=== PATIENT | male | born 1955 | race Caucasian/White ===

== ENCOUNTER → 2016-05-07 | Outpatient (CLI) | payer BC, OTHER ==
[~2016-05-07] VITALS: Ht 180.3 cm; Wt 92.5 kg
[~2016-05-07] MED LIST: ACTO30TA7 PO; AMLO10TA2 PO; ENBR50IN2 SC; FOLI400T PO; GEMF600T PO; GLIP10TA58 PO; HYZA100T6 PO; LEXA1TAB2 PO; LIDOCAINE 2% INJ 100 MG/5 ML SDV (FOR ANES.) As Ordered ONE; LIPI20TA PO; METF850T PO; METH25VL2 IM; METO25TAB PO; NS 1,000 ML IV SCH; OMEP20CA3 PO; PRED1TABL PO; PROPOFOL 200 MG/20 ML VIAL As Ordered ONE; VESI5TAB PO; VICT18IN SC
--- NOTE | 2016-05-07 11:10 | ROOR ---
Patient Name: Deni Brannon Procedure Date: 05/07/2016 10:50 AM Date of : 1955 Age: 61 Room: [facility] Gender: Male Note Status: Finalized Procedure: Colonoscopy Indications: High risk colon cancer surveillance: Personal history of colonic polyps, Last colonoscopy: January 2013 Providers: Deni RICHARDSON MD Referring MD: ISABELLA COLLINS MD Requesting Provider: Medicines: Monitored Anesthesia Care Complications: No immediate complications. Procedure: Pre-Anesthesia Assessment: - The heart rate, respiratory rate, oxygen saturations, blood pressure, adequacy of pulmonary ventilation, and response to care were monitored throughout the procedure. The Colonoscope was introduced through the anus and advanced to the cecum, identified by appendiceal orifice and ileocecal valve. The colonoscopy was performed without difficulty. The patient tolerated the procedure well. The quality of the bowel preparation was adequate. Findings: The perianal and digital rectal examinations were normal. (EXAM: Complete, PREP: Fair/Adequate) A 4 mm polyp was found in the sigmoid colon. The polyp was sessile. The polyp was removed with a cold snare. Resection and retrieval were complete. Multiple medium-mouthed diverticula were found in the sigmoid colon. The exam was otherwise without abnormality on direct and retroflexion views. Impression: - (EXAM: Complete, PREP: Fair/Adequate) - One 4 mm polyp in the sigmoid colon, removed with a cold snare. Resected and retrieved. - Moderate diverticulosis in the sigmoid colon. Internal hemorrhoids - The examination was otherwise normal on direct and retroflexion views. Recommendation: - Repeat colonoscopy in 5 years for surveillance. - Telephone endoscopist for pathology results in 2 weeks. Deni Richardson MD Deni RICHARDSON MD 05/07/2016 11:10:02 AM This report has been signed electronically. Number of Addenda: 0 Note Initiated On: 05/07/2016 10:50 AM Estimated Blood Loss: Estimated blood loss: none.
[2016-05-07 11:35] VITALS: BP 147/84
== END ==
LOC: M OPP 08:18
PROVIDERS: ATTEND Internal Medicine Gastroenterology
DX: Z12.11 Encounter for screening for malignant neoplasm of colon (principal); Z86.010 Personal history of colon polyps; Z80.0 Family history of malignant neoplasm of digestive organs; D12.5 Benign neoplasm of sigmoid colon; K57.30 Diverticulosis of large intestine without perforation or abscess without bleeding; E11.9 Type 2 diabetes mellitus without complications; E78.00 Pure hypercholesterolemia, unspecified; K21.9 Gastro-esophageal reflux disease without esophagitis; M06.9 Rheumatoid arthritis, unspecified; Z79.899 Other long term (current) drug therapy

== ENCOUNTER 2017-10-06 13:05 | Inpatient (IN) | payer BC, OTHER ==
[2017-10-06 14:25] LABS: BASO % 0.2 % (0.0-1.0); HEMATOCRIT 38.4 % (42.0-52.0); HEMOGLOBIN 13.9 g/dl (13.5-17.5); IMMATURE GRANULOCYTE % 2.4 % (0-3.0); LYMPH # 0.4 10^3/uL (1.5-4.5); LYMPH % 3.8 % (24.0-44.0); MEAN CORPUSCULAR HEMOGLOBIN 29.9 pg (27.0-33.0); MEAN CORPUSCULAR HGB CONC 36.2 g/dl (32.0-36.5); MEAN CORPUSCULAR VOLUME 82.6 fl (80.0-96.0); MONO # 0.4 10^3/uL (0.0-0.8); MONO % 3.5 % (0.0-5.0); NEUTROPHILS # 10.2 10^3/uL (1.8-7.7); NEUTROPHILS % 90.1 % (36.0-66.0); PLATELET COUNT, AUTOMATED 203 10^3/uL (150-450); RED BLOOD COUNT 4.65 10^6/uL (4.30-6.10); RED CELL DISTRIBUTION WIDTH 12.8 % (11.5-14.5); WHITE BLOOD COUNT 11.3 10^3/uL (4.0-10.0)
[2017-10-06 14:31] LABS: VENOUS BASE EXCESS 1.6 (-2.0-2.0); VENOUS HCO3 24.5 MEQ/L (23.0-27.0); VENOUS PARTIAL PRESSURE CO2 33.5 mmHg (38.0-50.0); VENOUS PARTIAL PRESSURE O2 41.8 mmHg (30.0-50.0); VENOUS PH 7.482 UNITS (7.330-7.430); VENOUS STANDARD HCO3 25.5 MEQ/L; VENOUS TOTAL CO2 25.5 MEQ/L (24.0-28.0)
[2017-10-06] MEDS: NS 1,000 ML IV ×4 (14:50→23:02)
[2017-10-06] MEDS: METOCLOPRAMIDE INJ 10MG/2ML VIAL (J2765) IV (14:50)
[2017-10-06 14:54] LABS: LACTIC ACID SEPSIS PROTOCOL 1.5 MMOL/L (0.4-2.0)
[2017-10-06 14:57] LABS: ALBUMIN 3.5 GM/DL (3.2-5.2); ALBUMIN/GLOBULIN RATIO 1.03 (1.00-1.93); ALKALINE PHOSPHATASE 212 U/L (45-117); ALT/SGPT 61 U/L (12-78); ANION GAP 10 MEQ/L (8-16); AST/SGOT 56 U/L (7-37); BILIRUBIN,TOTAL 0.9 MG/DL (0.2-1.0); BLOOD UREA NITROGEN 11 MG/DL (7-18); CARBON DIOXIDE LEVEL 25 MEQ/L (21-32); CHLORIDE LEVEL 93 MEQ/L (98-107); CPK CREATINE PHOSPHOKINASE 469 U/L (39-308); CREATININE FOR GFR 0.92 MG/DL (0.70-1.30); GLOMERULAR FILTRATION RATE > 60.0 (>49); GLUCOSE, FASTING 219 MG/DL (70-100); LIPASE 195 U/L (73-393); POTASSIUM SERUM 3.7 MEQ/L (3.5-5.1); SODIUM LEVEL 128 MEQ/L (136-145); TOTAL PROTEIN 6.9 GM/DL (6.4-8.2); TROPONIN I 0.07 NG/ML (< 0.10)
[2017-10-06 14:58] LABS: CK-MB VALUE MASS 1.5 NG/ML (<3.6); MB/CK RELATIVE INDEX 0.31 (< OR =4)
[2017-10-06 16:16] LABS: AMORPHOUS SEDIMENT RFX SMALL (NEGATIVE); KETONE, URINE AUTO RFX 1+ mg/dL (NEGATIVE); LEUKOCYTE ESTERASE UR AUTO RFX NEGATIVE (NEGATIVE); NITRITE, URINE AUTO RFX NEGATIVE (NEGATIVE); RBC, URINE AUTO RFX 1 /HPF (0-3); SPECIFIC GRAVITY UR AUTO RFX 1.025 (1.002-1.035); SQUAM EPITHELIAL CELL UR AURFX 0 /HPF (0-6); WBC, URINE AUTO RFX 1 /HPF (0-3)
[2017-10-06] MEDS: ONDANSETRON 4MG/2ML VIAL (J2405) IV (16:28)
[2017-10-06] MEDS: FAMOTIDINE IV BAG 20 MG in APPROPRIATE DILUENT 1 EA IV (17:01)
[2017-10-06] MEDS: ACETAMINOPHEN 325 MG TAB PO (17:01)
[2017-10-06] MEDS: methylPREDNISolone INJ 125 MG/2 ML VIAL (J2930) IV (17:01)
[2017-10-06 19:55] LABS: CK-MB VALUE MASS 1.1 NG/ML (<3.6); CPK CREATINE PHOSPHOKINASE 401 U/L (39-308); MB/CK RELATIVE INDEX 0.27 (< OR =4); TROPONIN I 0.08 NG/ML (< 0.10)
[2017-10-07] MEDS ORDERED: ONDANSETRON 4MG/2ML VIAL (J2405) IV (01:45)
[2017-10-07] MEDS: cefTRIAXone SOD 1 GM in D5W MINI-BAG PLUS 50 ML IV (02:47)
[2017-10-07] MEDS: diphenhydrAMINE 50 MG CAP PO (02:47)
[2017-10-07] MEDS: NS 1,000 ML IV ×2 (02:47→14:00)
[2017-10-07 03:41] LABS: BEDSIDE GLUCOSE 224 MG/DL (80-115)
[2017-10-07 07:18] LABS: BASO % 0.2 % (0.0-1.0); HEMATOCRIT 38.4 % (42.0-52.0); HEMOGLOBIN 13.4 g/dl (13.5-17.5); IMMATURE GRANULOCYTE % 1.4 % (0-3.0); LYMPH # 0.5 10^3/uL (1.5-4.5); LYMPH % 5.5 % (24.0-44.0); MEAN CORPUSCULAR HEMOGLOBIN 29.8 pg (27.0-33.0); MEAN CORPUSCULAR HGB CONC 34.9 g/dl (32.0-36.5); MEAN CORPUSCULAR VOLUME 85.3 fl (80.0-96.0); MONO # 0.4 10^3/uL (0.0-0.8); MONO % 4.1 % (0.0-5.0); NEUTROPHILS # 8.6 10^3/uL (1.8-7.7); NEUTROPHILS % 88.8 % (36.0-66.0); PLATELET COUNT, AUTOMATED 215 10^3/uL (150-450); RED CELL DISTRIBUTION WIDTH 12.9 % (11.5-14.5); WHITE BLOOD COUNT 9.7 10^3/uL (4.0-10.0)
[2017-10-07 07:52] LABS: ALBUMIN 2.8 GM/DL (3.2-5.2); ALBUMIN/GLOBULIN RATIO 0.67 (1.00-1.93); ALKALINE PHOSPHATASE 169 U/L (45-117); ALT/SGPT 51 U/L (12-78); ANION GAP 10 MEQ/L (8-16); AST/SGOT 36 U/L (7-37); BILIRUBIN,TOTAL 0.4 MG/DL (0.2-1.0); BLOOD UREA NITROGEN 17 MG/DL (7-18); CALCIUM LEVEL 7.9 MG/DL (8.8-10.2); CARBON DIOXIDE LEVEL 25 MEQ/L (21-32); CHLORIDE LEVEL 106 MEQ/L (98-107); CK-MB VALUE MASS 1.7 NG/ML (<3.6); CPK CREATINE PHOSPHOKINASE 242 U/L (39-308); CREATININE FOR GFR 0.85 MG/DL (0.70-1.30); GLOMERULAR FILTRATION RATE > 60.0 (>49); GLUCOSE, FASTING 217 MG/DL (70-100); POTASSIUM SERUM 3.3 MEQ/L (3.5-5.1); SODIUM LEVEL 141 MEQ/L (136-145); TROPONIN I 0.06 NG/ML (< 0.10)
[2017-10-07] MEDS: FAMOTIDINE/NS 20 MG/50 ML BAG (S0028) IV (07:57)
[2017-10-07] MEDS: amLODIPine 10 MG TAB PO (07:58)
[2017-10-07] MEDS: OMEPRAZOLE 20 MG CAP PO (07:58)
[2017-10-07] MEDS: METOPROLOL SUCC *XL* 25MG TAB (TopROL *XL*) PO ×2 (07:58→08:20)
[2017-10-07] MEDS: ESCITALOPRAM OXALATE 10 MG TAB (LEXAPRO) PO (07:58)
[2017-10-07] MEDS: ACETAMINOPHEN TAB 650MG DOSE (2X325MG) PO ×2 (08:05→22:41)
[2017-10-07] MEDS: metFORMIN 850 MG TAB PO ×2 (10:25→17:25)
[2017-10-07 12:06] LABS: BEDSIDE GLUCOSE 248 MG/DL (80-115)
[2017-10-07] MEDS ORDERED: DEXTROSE 50% 50 ML SYRINGE IV (13:00)
[2017-10-07] MEDS ORDERED: GLUCOSE 4 GM CHEW TABLET PO (13:00)
[2017-10-07] MEDS ORDERED: GLUCAGON FOR INJ 1 MG VIAL (J1610) SC (13:00)
[2017-10-07] MEDS: VANCOMYCIN HCL 1,000 MG, VIAL MATE ADAPTER 1 EACH in D5W 250 ML IV (14:40)
[2017-10-07 16:40] LABS: BEDSIDE GLUCOSE 237 MG/DL (80-115)
[2017-10-07] MEDS: HumaLOG INSULIN (NovoLOG) PER UNIT SC ×2 (17:26→20:48)
[2017-10-07] MEDS: FAMOTIDINE IV BAG 20 MG in APPROPRIATE DILUENT 1 EA IV (20:15)
[2017-10-07 20:49] LABS: BEDSIDE GLUCOSE 167 MG/DL (80-115)
[2017-10-07] MEDS: cefTRIAXone SOD 2 GM in D5W MINI-BAG PLUS 50 ML IV (22:41)
[2017-10-08] MEDS: NS 1,000 ML IV ×3 (03:09→22:01)
[2017-10-08 06:13] LABS: BASO % 0.4 % (0.0-1.0); EOS # 0.1 10^3/uL (0.0-0.50); EOS % 1.7 % (0.0-3.0); HEMATOCRIT 33.1 % (42.0-52.0); IMMATURE GRANULOCYTE % 0.9 % (0-3.0); LYMPH # 1.1 10^3/uL (1.5-4.5); LYMPH % 21.2 % (24.0-44.0); MEAN CORPUSCULAR HEMOGLOBIN 29.5 pg (27.0-33.0); MEAN CORPUSCULAR HGB CONC 34.4 g/dl (32.0-36.5); MEAN CORPUSCULAR VOLUME 85.5 fl (80.0-96.0); MONO # 0.7 10^3/uL (0.0-0.8); MONO % 12.2 % (0.0-5.0); NEUTROPHILS # 3.4 10^3/uL (1.8-7.7); NEUTROPHILS % 63.6 % (36.0-66.0); PLATELET COUNT, AUTOMATED 233 10^3/uL (150-450); RED BLOOD COUNT 3.87 10^6/uL (4.30-6.10); RED CELL DISTRIBUTION WIDTH 13.3 % (11.5-14.5); WHITE BLOOD COUNT 5.3 10^3/uL (4.0-10.0)
[2017-10-08 06:34] LABS: ALBUMIN 2.4 GM/DL (3.2-5.2); ALBUMIN/GLOBULIN RATIO 0.75 (1.00-1.93); ALKALINE PHOSPHATASE 119 U/L (45-117); ALT/SGPT 42 U/L (12-78); ANION GAP 7 MEQ/L (8-16); AST/SGOT 30 U/L (7-37); BILIRUBIN,TOTAL 0.2 MG/DL (0.2-1.0); BLOOD UREA NITROGEN 16 MG/DL (7-18); CALCIUM LEVEL 7.5 MG/DL (8.8-10.2); CARBON DIOXIDE LEVEL 28 MEQ/L (21-32); CHLORIDE LEVEL 106 MEQ/L (98-107); CPK CREATINE PHOSPHOKINASE 108 U/L (39-308); CREATININE FOR GFR 0.74 MG/DL (0.70-1.30); GLOMERULAR FILTRATION RATE > 60.0 (>49); GLUCOSE, FASTING 158 MG/DL (70-100); POTASSIUM SERUM 3.4 MEQ/L (3.5-5.1); SODIUM LEVEL 141 MEQ/L (136-145); TOTAL PROTEIN 5.6 GM/DL (6.4-8.2)
[2017-10-08 06:42] LABS: HEMOGLOBIN 11.4 g/dl (13.5-17.5)
[2017-10-08 07:09] LABS: MAGNESIUM LEVEL 2.1 MG/DL (1.8-2.4)
[2017-10-08] MEDS: metFORMIN 850 MG TAB PO (08:07)
[2017-10-08] MEDS: OMEPRAZOLE 20 MG CAP PO (08:07)
[2017-10-08] MEDS: POTASSIUM CHLORIDE 10 MEQ SR TABLET PO (08:07)
[2017-10-08] MEDS: amLODIPine 10 MG TAB PO (08:07)
[2017-10-08] MEDS: ESCITALOPRAM OXALATE 10 MG TAB (LEXAPRO) PO (08:07)
[2017-10-08] MEDS: HumaLOG INSULIN (NovoLOG) PER UNIT SC ×4 (08:08→20:16)
[2017-10-08] MEDS: METOPROLOL SUCC *XL* 25MG TAB (TopROL *XL*) PO (08:09)
[2017-10-08] MEDS: ACETAMINOPHEN TAB 650MG DOSE (2X325MG) PO ×2 (08:09→17:21)
[2017-10-08 11:39] LABS: BEDSIDE GLUCOSE 101 MG/DL (80-115)
[2017-10-08 16:53] LABS: BEDSIDE GLUCOSE 168 MG/DL (80-115)
[2017-10-08 20:06] LABS: BEDSIDE GLUCOSE 149 MG/DL (80-115)
[2017-10-08] MEDS: cefTRIAXone SOD 2 GM in D5W MINI-BAG PLUS 50 ML IV (22:01)
[2017-10-09 00:06] LABS: IgG P18 AB Absent (.); IgG P23 AB Absent (.); IgG P28 AB Absent (.); IgG P30 AB Absent (.); IgG P39 AB Absent (.); IgG P41 AB Absent (.); IgG P45 AB Absent (.); IgG P58 AB Absent (.); IgG P66 AB Absent (.); IgG P93 AB Absent (.); IgM P23 AB Present (.); IgM P39 AB Absent (.); IgM P41 AB Present (.); LYME IgG WB INTERPRETATION Negative (.); LYME IgM WB INTERPRETATION Positive (.)
[2017-10-09] MEDS: NS 1,000 ML IV ×2 (03:50→13:36)
[2017-10-09 06:04] LABS: BASO % 0.6 % (0.0-1.0); EOS # 0.2 10^3/uL (0.0-0.50); EOS % 3.1 % (0.0-3.0); HEMATOCRIT 33.8 % (42.0-52.0); HEMOGLOBIN 11.7 g/dl (13.5-17.5); IMMATURE GRANULOCYTE % 1.6 % (0-3.0); LYMPH # 1.5 10^3/uL (1.5-4.5); LYMPH % 31.1 % (24.0-44.0); MEAN CORPUSCULAR HEMOGLOBIN 29.6 pg (27.0-33.0); MEAN CORPUSCULAR HGB CONC 34.6 g/dl (32.0-36.5); MEAN CORPUSCULAR VOLUME 85.6 fl (80.0-96.0); MONO # 0.7 10^3/uL (0.0-0.8); MONO % 13.3 % (0.0-5.0); NEUTROPHILS # 2.5 10^3/uL (1.8-7.7); NEUTROPHILS % 50.3 % (36.0-66.0); PLATELET COUNT, AUTOMATED 258 10^3/uL (150-450); RED BLOOD COUNT 3.95 10^6/uL (4.30-6.10); RED CELL DISTRIBUTION WIDTH 13.2 % (11.5-14.5); WHITE BLOOD COUNT 4.9 10^3/uL (4.0-10.0)
[2017-10-09 06:32] LABS: ALT/SGPT 40 U/L (12-78); ANION GAP 7 MEQ/L (8-16); AST/SGOT 30 U/L (7-37); BLOOD UREA NITROGEN 10 MG/DL (7-18); CALCIUM LEVEL 7.5 MG/DL (8.8-10.2); CARBON DIOXIDE LEVEL 31 MEQ/L (21-32); CHLORIDE LEVEL 105 MEQ/L (98-107); CPK CREATINE PHOSPHOKINASE 81 U/L (39-308); GLOMERULAR FILTRATION RATE > 60.0 (>49); GLUCOSE, FASTING 135 MG/DL (70-100); POTASSIUM SERUM 3.6 MEQ/L (3.5-5.1); SODIUM LEVEL 143 MEQ/L (136-145)
[2017-10-09 06:33] LABS: ALBUMIN 2.5 GM/DL (3.2-5.2); ALBUMIN/GLOBULIN RATIO 0.78 (1.00-1.93); ALKALINE PHOSPHATASE 113 U/L (45-117); BILIRUBIN,TOTAL 0.2 MG/DL (0.2-1.0); TOTAL PROTEIN 5.7 GM/DL (6.4-8.2)
[2017-10-09 06:58] LABS: POSITIVE MORPH POS FLAG
[2017-10-09] MEDS: HumaLOG INSULIN (NovoLOG) PER UNIT SC ×4 (09:19→21:00)
[2017-10-09] MEDS: ESCITALOPRAM OXALATE 10 MG TAB (LEXAPRO) PO (09:20)
[2017-10-09] MEDS: amLODIPine 10 MG TAB PO (09:20)
[2017-10-09] MEDS: METOPROLOL SUCC *XL* 25MG TAB (TopROL *XL*) PO (09:20)
[2017-10-09] MEDS: OMEPRAZOLE 20 MG CAP PO (09:20)
[2017-10-09 11:37] LABS: BEDSIDE GLUCOSE 159 MG/DL (80-115)
[2017-10-09 16:55] LABS: BEDSIDE GLUCOSE 166 MG/DL (80-115)
[2017-10-09 20:03] LABS: BEDSIDE GLUCOSE 198 MG/DL (80-115)
[2017-10-09] MEDS: cefTRIAXone SOD 2 GM in D5W MINI-BAG PLUS 50 ML IV (21:54)
[2017-10-10 00:06] LABS: Lyme Disease IgG Ab 18 kDa Ban Absent (.); Lyme Disease IgG Ab 23 kDa Ban Absent (.); Lyme Disease IgG Ab 28 kDa Ban Absent (.); Lyme Disease IgG Ab 30 kDa Ban Absent (.); Lyme Disease IgG Ab 39 kDa Ban Absent (.); Lyme Disease IgG Ab 41 kDa Ban Absent (.); Lyme Disease IgG Ab 45 kDa Ban Absent (.); Lyme Disease IgG Ab 58 kDa Ban Absent (.); Lyme Disease IgG Ab 66 kDa Ban Absent (.); Lyme Disease IgG Ab 93 kDa Ban Absent (.); Lyme Disease IgG West Blot Int Negative (.); Lyme Disease IgG/IgM Antibodie 0.92 ISR (0.00-0.90); Lyme Disease IgM Ab 23 kDa Ban Present (.); Lyme Disease IgM Ab 39 kDa Ban Absent (.); Lyme Disease IgM Ab 41 kDa Ban Present (.); Lyme Disease IgM Ab Quantitati 2.73 index (0.00-0.79); Lyme Disease IgM West Blot Int Positive (.)
[2017-10-10] MEDS: NS 1,000 ML IV ×2 (04:17→09:46)
[2017-10-10 06:07] LABS: HEMATOCRIT 35.1 % (42.0-52.0); HEMOGLOBIN 12.3 g/dl (13.5-17.5); MEAN CORPUSCULAR HEMOGLOBIN 29.6 pg (27.0-33.0); MEAN CORPUSCULAR VOLUME 84.6 fl (80.0-96.0); PLATELET COUNT, AUTOMATED 325 10^3/uL (150-450); RED BLOOD COUNT 4.15 10^6/uL (4.30-6.10); RED CELL DISTRIBUTION WIDTH 13.2 % (11.5-14.5); WHITE BLOOD COUNT 6.3 10^3/uL (4.0-10.0)
[2017-10-10 06:08] LABS: ADD MANUAL DIFFER YES; DIFF SLIDE NUMBER 24; POSITIVE MORPH POS FLAG
[2017-10-10 06:27] LABS: ALBUMIN 2.8 GM/DL (3.2-5.2); ALKALINE PHOSPHATASE 115 U/L (45-117); ALT/SGPT 40 U/L (12-78); ANION GAP 7 MEQ/L (8-16); AST/SGOT 32 U/L (7-37); BILIRUBIN,TOTAL 0.2 MG/DL (0.2-1.0); BLOOD UREA NITROGEN 8 MG/DL (7-18); CALCIUM LEVEL 8.1 MG/DL (8.8-10.2); CARBON DIOXIDE LEVEL 32 MEQ/L (21-32); CHLORIDE LEVEL 103 MEQ/L (98-107); CPK CREATINE PHOSPHOKINASE 58 U/L (39-308); CREATININE FOR GFR 0.67 MG/DL (0.70-1.30); GLOMERULAR FILTRATION RATE > 60.0 (>49); GLUCOSE, FASTING 176 MG/DL (70-100); POTASSIUM SERUM 3.6 MEQ/L (3.5-5.1); SODIUM LEVEL 142 MEQ/L (136-145); TOTAL PROTEIN 6.3 GM/DL (6.4-8.2)
[2017-10-10 06:39] LABS: ATYPICAL LYMPH 1 % (0-5); BASOPHILS 2 % (0-4); EOSINOPHILS 6 % (0-5); LYMPHOCYTES 24 % (16-52); MONOCYTES 7 % (0-8); NEUTROPHILS 60 % (35-75); PLATELET ESTIMATE NORMAL (NORMAL)
[2017-10-10 06:40] LABS: POLYCHROMASIA 1+
[2017-10-10] MEDS: OMEPRAZOLE 20 MG CAP PO (08:28)
[2017-10-10] MEDS: DOXYCYCLINE HYCLATE 100 MG TAB PO (08:28)
[2017-10-10] MEDS: HumaLOG INSULIN (NovoLOG) PER UNIT SC (08:29)
[2017-10-10] MEDS: ESCITALOPRAM OXALATE 10 MG TAB (LEXAPRO) PO (08:29)
[2017-10-10] MEDS: METOPROLOL SUCC *XL* 25MG TAB (TopROL *XL*) PO (08:29)
[2017-10-10] MEDS: amLODIPine 10 MG TAB PO (08:29)
== END 2017-10-10 12:12 | disposition home or self-care (01) | DRG 724 ==
LOC: M ED INP 10-07 01:36 → M ED 13:05 → M MS4PR 10-07 09:03 → M MSPAV 10-07 15:00
PROVIDERS: Internal Medicine
DX: A69.20 Lyme disease, unspecified (principal); D84.9 Immunodeficiency, unspecified; M06.9 Rheumatoid arthritis, unspecified; I10 Essential (primary) hypertension; E11.9 Type 2 diabetes mellitus without complications; E78.00 Pure hypercholesterolemia, unspecified; Z79.52 Long term (current) use of systemic steroids; Z79.84 Long term (current) use of oral hypoglycemic drugs; Z79.899 Other long term (current) drug therapy

== ENCOUNTER 2020-01-10 10:32 | Emergency (ER) | payer MEDICARE, BC, OTHER ==
[~2020-01-10 10:32] MED LIST changes: +ACTO30TA15 PO; -ACTO30TA7 PO; +ACTO45TA12 PO; -AMLO10TA2 PO; +AMLO1TAB25 PO; +ATOR80TA59 PO; +DOXY100T PO; -ENBR50IN2 SC; +ETAN50SY SC; -GEMF600T PO; +GEMF600T5 PO; -GLIP10TA58 PO; +GLIP1TAB11 PO; -LIDOCAINE 2% INJ 100 MG/5 ML SDV (FOR ANES.) As Ordered ONE; +LOSA100T8 PO; -METF850T PO; +METF850T4 PO; -METH25VL2 IM; +METH50IN8 IM; +METO1TAB32 PO; +METO25TA4 PO; -METO25TAB PO; -NS 1,000 ML IV SCH; +OMEP1CAP73 PO; -OMEP20CA3 PO; -PROPOFOL 200 MG/20 ML VIAL As Ordered ONE; -VESI5TAB PO; +VESI5TAB2 PO
[2020-01-10 11:19] LABS: BASO # 0.1 10^3/uL (0.0-0.2); BASO % 0.9 % (0.0-1.0); EOS # 0.3 10^3/uL (0.0-0.5); EOS % 4.3 % (0.0-3.0); HEMATOCRIT 46.4 % (42.0-52.0); HEMOGLOBIN 15.5 g/dl (13.5-17.5); LYMPH # 1.1 10^3/uL (1.5-5.0); LYMPH % 17.2 % (24.0-44.0); MEAN CORPUSCULAR HGB CONC 33.4 g/dl (32.0-36.5); MEAN CORPUSCULAR VOLUME 86.9 fl (80.0-96.0); MONO # 0.5 10^3/uL (0.0-0.8); MONO % 7.7 % (0.0-5.0); NEUTROPHILS # 4.4 10^3/uL (1.5-8.5); NEUTROPHILS % 69.6 % (36.0-66.0); PLATELET COUNT, AUTOMATED 238 10^3/uL (150-450); RED BLOOD COUNT 5.34 10^6/uL (4.30-6.10); WHITE BLOOD COUNT 6.3 10^3/uL (4.0-10.0)
--- NOTE | 2020-01-10 11:21 | REPVR ---
PROCEDURE INFORMATION: Exam: XR Chest, 1 View Exam date and time: 01/10/2020 10:53 AM Age: 64 years old Clinical indication: Chest pain; Type not specified TECHNIQUE: Imaging protocol: XR of the chest Views: 1 view. COMPARISON: CR Abdomen,Flat Upright,PA CHEST 10/06/2017 6:45 PM FINDINGS: Tubes, catheters and devices: Oxygen tubing and ECG leads/contacts overlie and partially obscure the anatomy. Lungs: No pulmonary consolidation or edema. Pleural space: No evident pleural effusion. No evident pneumothorax. Heart/Mediastinum: The cardiomediastinal silhouette is within normal limits for size and contour. Bones/joints: No acute osseous abnormality. IMPRESSION: No radiographic evidence of acute cardiopulmonary disease. Electronically signed by: Harshad Smith On 01/10/2020 11:21:15 AM
[2020-01-10] MEDS ORDERED: amLODIPine 10 MG TAB PO ONE (11:30)
[2020-01-10] MEDS ORDERED: LOSARTAN 50MG TABLET PO ONE (11:30)
[2020-01-10] MEDS ORDERED: ETAN50PE IM (11:31)
[2020-01-10 11:45] VITALS: BP 178/101
[2020-01-10 11:48] LABS: ALBUMIN 3.8 GM/DL (3.2-5.2); BILIRUBIN,DIRECT 0.1 MG/DL (0.0-0.2); BILIRUBIN,TOTAL 0.4 MG/DL (0.2-1.0); THYROID STIMULATING HORMONE 0.92 uIU/ML (0.358-3.740); TOTAL PROTEIN 6.9 GM/DL (6.4-8.2)
[2020-01-10 13:00] VITALS: BP 159/85
[2020-01-10] MEDS ORDERED: AMLO1TAB25 PO (13:27)
[2020-01-10] MEDS ORDERED: LOSA100T50 PO (13:27)
--- NOTE | 2020-01-11 09:02 | ECGEPIP ---
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 Order Number: [id number] Reading MD: Jonel Rose Measurements Intervals [place] Rate: 64 P: 47 MS: 153 QRS: 47 QRSD: 94 T: 49 QT: 381 QTc: 393 Interpretive Statements SINUS RHYTHM SIMILAR TO 10/06/17 Electronically Signed on 01-11-2020 9:02:01 EDT by Jonel Rose
--- NOTE | 2020-01-11 09:04 | ECGEPIP ---
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 Order Number: [id number] Reading MD: Jonel Rose Measurements Intervals [place] Rate: 61 P: 59 VT: 197 QRS: 42 QRSD: 89 T: 37 QT: 394 QTc: 400 Interpretive Statements SINUS RHYTHM SIMILAR TO PRIOR ON SAME DATE Electronically Signed on 01-11-2020 9:04:15 EDT by Jonel Rose
== END 2020-01-10 14:10 | disposition home or self-care (01) ==
LOC: M ED 10:32 → EDBD 10:32 → M ED 14:10
DX: R07.9 Chest pain, unspecified (principal); E11.9 Type 2 diabetes mellitus without complications; I10 Essential (primary) hypertension; M06.9 Rheumatoid arthritis, unspecified; F12.10 Cannabis abuse, uncomplicated; Z79.899 Other long term (current) drug therapy

== ENCOUNTER 2020-01-13 14:54 | Emergency (ER) | payer MEDICARE, BC, OTHER ==
[~2020-01-13] VITALS: Ht 180.3 cm; Wt 90.4 kg
[~2020-01-13 14:54] MED LIST changes: +ETAN50PE IM; +LOSA100T50 PO
[2020-01-13] MEDS ORDERED: HEPARIN DRIP 25,000 UNITS in IV 1 EA IV SCH (15:10)
[2020-01-13] MEDS: NITROGLYCERIN 0.4 MG SUBL TABLET SL PRN ×2 (15:12→15:21)
[2020-01-13] MEDS: MORPHINE 4 MG/ML 1ML VIAL/SYRINGE (J2270) IV PRN ×2 (15:12→15:42)
[2020-01-13] MEDS ORDERED: HEPARIN SOD (PORCINE) 5000UNITS/ML 1ML VIAL/SYRINGE IV ONE (15:15)
[2020-01-13] MEDS ORDERED: TENECTEPLASE 50 MG KIT (TNKase) (J3101 PER 1MG) IV ONE (15:15)
[2020-01-13] MEDS ORDERED: CLOPIDOGREL 300 MG TAB (PLAVIX) PO ONE (15:15)
[2020-01-13] MEDS ORDERED: ONDANSETRON 4MG/2ML VIAL IV ONE (15:15)
[2020-01-13] MEDS ORDERED: HEPARIN 25,000 UNITS/250 ML D5W BAG (100 UNITS/ML) (J1644 PER 1000UNITS) As Ordered ONE (15:15)
--- NOTE | 2020-01-13 15:16 | REPVR ---
PROCEDURE INFORMATION: Exam: XR Chest, 1 View Exam date and time: 01/13/2020 3:02 PM Age: 64 years old Clinical indication: Chest pain TECHNIQUE: Imaging protocol: XR of the chest Views: 1 view. COMPARISON: CR PORTABLE CHEST X-RAY 01/10/2020 10:49 AM FINDINGS: Lungs: Hyperinflation and mild interstitial prominence, without acute airspace disease. Pleural space: No pleural effusion. Heart/Mediastinum: No cardiomegaly. Bones/joints: Unremarkable. When correlating with the previous study, no significant interval changes are present. IMPRESSION: Stable appearance of the chest, not significantly changed from 01/10/20. Electronically signed by: Rafi Padilla On 01/13/2020 15:15:48 PM
[2020-01-13 15:18] LABS: BASO # 0.1 10^3/uL (0.0-0.2); BASO % 0.5 % (0.0-1.0); EOS # 0.2 10^3/uL (0.0-0.5); EOS % 1.4 % (0.0-3.0); HEMATOCRIT 50.1 % (42.0-52.0); HEMOGLOBIN 16.8 g/dl (13.5-17.5); LYMPH # 1.6 10^3/uL (1.5-5.0); LYMPH % 12.6 % (24.0-44.0); MEAN CORPUSCULAR HEMOGLOBIN 28.7 pg (27.0-33.0); MEAN CORPUSCULAR HGB CONC 33.5 g/dl (32.0-36.5); MEAN CORPUSCULAR VOLUME 85.6 fl (80.0-96.0); MONO # 0.8 10^3/uL (0.0-0.8); MONO % 6.3 % (0.0-5.0); NEUTROPHILS # 9.9 10^3/uL (1.5-8.5); NEUTROPHILS % 78.6 % (36.0-66.0); PLATELET COUNT, AUTOMATED 308 10^3/uL (150-450); RED BLOOD COUNT 5.85 10^6/uL (4.30-6.10); WHITE BLOOD COUNT 12.5 10^3/uL (4.0-10.0)
[2020-01-13 15:21] VITALS: BP 169/83
[2020-01-13] MEDS ORDERED: NITROGLYCERIN/D5W 100MCG/ML 25 MG in IV 1 EA IV SCH (15:30)
[2020-01-13] MEDS ORDERED: NITROGLYCERIN 2% OINT 1 GM *U/D* PKT TOP ONE (15:30)
[2020-01-13 15:36] LABS: INR 0.94; PROTHROMBIN TIME 12.7 SECONDS (12.5-14.3)
[2020-01-13 15:37] LABS: PARTIAL THROMBOPLASTIN TIME 25.8 SECONDS (24.2-38.5)
[2020-01-13] MEDS ORDERED: LANTINJ4 SC (15:53)
[2020-01-13 16:15] VITALS: BP 126/64
--- NOTE | 2020-01-14 09:04 | ECGEPIP ---
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 Order Number: [id number] Reading MD: Meg Tejeda Measurements Intervals [place] Rate: 76 P: 63 SC: 189 QRS: 44 QRSD: 96 T: 35 QT: 378 QTc: 426 Interpretive Statements SINUS RHYTHM ST ELEVATION, CONSIDER INFERIOR INJURY ST ELEVATION, LATERAL ACUTE WI CLINICAL CORRELATION Electronically Signed on 01-14-2020 9:03:47 EDT by Meg Tejeda
== END 2020-01-13 16:21 | disposition short-term general hospital (02) ==
LOC: M ED 14:54
DX: I21.19 ST elevation (STEMI) myocardial infarction involving other coronary artery of inferior wall (principal); E11.9 Type 2 diabetes mellitus without complications; I10 Essential (primary) hypertension; Z91.14 Patient's other noncompliance with medication regimen; Z79.899 Other long term (current) drug therapy; Z79.4 Long term (current) use of insulin
CPT/HCPCS: 71045; 80047; 84484; 85025; 85610; 85730; 93005; 93041; 94760; 96365; 96367; 96375; 96376; 99285; J1644; J2270; J2405; J3101